=== PATIENT | female | born 1975 | race African-American/Black ===

== ENCOUNTER 2021-07-29 18:25 | Emergency (ER) | payer MEDICAID ==
[~2021-07-29] VITALS: Ht 172.7 cm; Wt 90.0 kg
[2021-07-29] MEDS ORDERED: METOCLOPRAMIDE HCL 10MG/2ML VIAL IV ONE (19:15)
[2021-07-29] MEDS ORDERED: DIPHENHYDRAMINE 50MG/ML VIAL IV ONE (19:15)
[2021-07-29 19:34] LABS: CHLORIDE 104 mEq/L (98-107)
[2021-07-29 19:36] LABS: BASOPHILS % 0.9 % (0.0-2.0); EOSINOPHILS % 2.2 % (0.0-5.0); HEMATOCRIT. 46.5 % (36.0-48.0); HEMOGLOBIN. 15.6 g/dL (12.0-16.0); LYMPHOCYTES % 28.9 % (20.0-50.0); MEAN CORPUSCULAR HEMOGLOBIN 28.9 pg (28.0-32.0); MEAN PLATELET VOLUME 8.3 fl (7.4-10.4); MONOCYTES % 7.2 % (2.0-8.0); NEUTROPHILS % 60.8 % (40.0-76.0); PLATELET 362 x1000/uL (130-400); RED BLOOD CELL COUNT 5.41 mill/uL (4.2-5.4); RED CELL DISTRIBUTION WIDTH 14.2 % (11.6-14.6)
[2021-07-29 19:37] LABS: HCG SCREEN NEGATIVE
[2021-07-29] MEDS ORDERED: ASPIRIN 325MG EC TABLET PO ONE (20:45)
[2021-07-29 21:15] VITALS: BP 127/81
== END 2021-07-29 21:15 | disposition left against medical advice (07) ==
LOC: ER 18:25
DX: R20.0 Anesthesia of skin (principal); G43.909 Migraine, unspecified, not intractable, without status migrainosus; R42 Dizziness and giddiness; R53.1 Weakness
CPT/HCPCS: 36415; 70450; 71045; 80053; 83880; 84484; 84703; 85025; 93005; 96374; 96375; 99285; J1200; J2765

== ENCOUNTER 2022-09-25 20:27 | Emergency (ER) | payer MEDICAID, OTHER ==
[~2022-09-25] VITALS: Ht 167.6 cm; Wt 100.0 kg
[2022-09-25 20:39] VITALS: BP 156/94; PULSE 97; RESP 14; TEMP 98.3; O2SAT 97
[2022-09-25] MEDS ORDERED: KETOROLAC 30MG/ML VIAL IV STA (20:41)
[2022-09-25] MEDS ORDERED: DIPHENHYDRAMINE 50MG/ML VIAL IV ONE (20:45)
[2022-09-25] MEDS ORDERED: SODIUM CHLORIDE 0.9% 1,000 ML IV ONE (20:45)
[2022-09-25] MEDS ORDERED: METOCLOPRAMIDE HCL 10MG/2ML VIAL IV ONE (20:45)
[2022-09-25] MEDS ORDERED: ACETAMINOPHEN 325MG TABLET PO ONE (20:45)
[2022-09-25] MEDS ORDERED: MAGNESIUM 2 G PREMIX 50 ML IV ONE (22:45)
[2022-09-25] MEDS ORDERED: PROCHLORPERAZINE 10MG/2ML VIAL IV ONE (23:00)
[2022-09-25] MEDS ORDERED: DEXAMETHASONE 10 MG/ML VIAL IV ONE (23:00)
== END 2022-09-26 01:05 | disposition home or self-care (01) ==
LOC: ER 20:27
DX: G43.909 Migraine, unspecified, not intractable, without status migrainosus (principal); R11.2 Nausea with vomiting, unspecified
CPT/HCPCS: 96361; 96365; 96375; 99284; J1100; J1200; J1885; J3475; J2765; J0780; J7030; Z7610 ×3